=== PATIENT | female | born 1965 | race Caucasian/White ===

== ENCOUNTER 2024-02-07 20:09 | Emergency (ER) | payer MEDICAID ==
[~2024-02-07] VITALS: Ht 157.5 cm; Wt 104.3 kg
[2024-02-07 20:24] VITALS: BP_SYST 208; PULSE 80; RESP 18; TEMP 98.7; O2SAT 99
[2024-02-07 21:01] LABS: BILIRUBIN,URINE NEGATIVE (NEGATIVE); BLOOD, URINE NEGATIVE (NEGATIVE); CLARITY/URINE CLEAR (CLEAR); GLUCOSE,URINE NEGATIVE (NEGATIVE); KETONES,URINE NEGATIVE (NEGATIVE); LEUKOCYTE ESTERASE ,URINE TRACE (NEGATIVE); NITRITE, URINE NEGATIVE (NEGATIVE); PH,URINE 6.5 (5.0-8.0); PROTEIN URINE NEGATIVE (NEGATIVE); UROBILINOGEN,URINE 0.2 (0.2-1.0)
[2024-02-07 21:04] LABS: COLOR,URINE STRAW (YELLOW)
[2024-02-07 21:48] LABS: BACTERIA,URINE FEW /HPF (None Seen); RBC,URINE 0-3 /HPF (0-3); WBC,URINE 0-3 /HPF (0-3)
[2024-02-07] MEDS: ACYCLOVIR IV 500 MG in D5W 100 ML IV ONE (23:15)
[2024-02-07] MEDS: MORPHINE 4 MG INJ. 4 MG/ML VIAL IVP ONE (23:40)
[2024-02-08] MEDS ORDERED: ACYCLOVIR SODIUM 50 MG/ML VIAL IV ONE (00:44)
[2024-02-08] MEDS: MORPHINE 4 MG INJ. 4 MG/ML VIAL IVP ONE (02:32)
[2024-02-08 03:25] LABS: BASOPHILS % (AUTO) 0.6 % (0.0-2.0); EOSINOPHILS # (AUTO) 0.2 K/uL (0.0-0.4); HEMATOCRIT 41.5 % (36-48); HEMOGLOBIN 14.2 g/dL (12.0-16.0); LYMPHOCYTES # (AUTO) 1.5 K/uL (1.0-5.5); LYMPHOCYTES % (AUTO) 26.2 % (20.5-51.5); MEAN CORPUSCULAR HEMOGLOBIN 30 pg (27-31); MEAN CORPUSCULAR HGB CONC 34 % (32-36); MEAN CORPUSCULAR VOLUME 86 fL (79.0-98.0); MONOCYTES # (AUTO) 0.6 K/uL (0.0-1.0); MONOCYTES % (AUTO) 11.3 % (1.7-9.3); NEUTROPHILS # (AUTO) 3.4 K/uL (1.8-7.7); NEUTROPHILS % (AUTO) 58.9 % (40.0-70.0); PLATELET COUNT (AUTO) 215 K/uL (130-430); RED BLOOD CELL COUNT(AUTO) 4.81 MIL/uL (4.2-6.2); RED CELL DISTRIBUTION WIDTH 13.4 % (9.0-15.0); WHITE BLOOD COUNT (AUTO) 5.7 K/uL (4.8-10.8)
[2024-02-08 03:38] LABS: CALCIUM 8.5 mg/dL (8.4-11.0); CREATININE 0.61 mg/dL (0.55-1.30); POTASSIUM 3.8 mmol/L (3.5-5.1)
[2024-02-08] MEDS ORDERED: VALA500T PO (05:39)
[2024-02-08] MEDS ORDERED: NEU300 PO (05:42)
[2024-02-08 05:55] VITALS: BP_SYST 146; PULSE 80; RESP 20; TEMP 98.7; O2SAT 94
== END 2024-02-08 05:56 | disposition home or self-care (01) ==
LOC: SED 20:09
DX: R10.32 Left lower quadrant pain (principal); B02.8 Zoster with other complications; Z79.899 Other long term (current) drug therapy
CPT/HCPCS: 99285; 74176; 96375; 80048; 81001; 85025; 36415; 96365; 96376; J2270 ×2; J0133; 81000; 81015